=== PATIENT | female | born 1960 | race Caucasian/White ===

== ENCOUNTER 2017-08-23 21:22 | Emergency (ER) | payer BC ==
[~2017-08-23] VITALS: Ht 170.2 cm; Wt 81.6 kg
[2017-08-23 22:19] VITALS: BP_SYST 120
[2017-08-23 22:53] LABS: BASOPHILS # (AUTO) 0.1 K/uL (0.0-0.2); BASOPHILS % (AUTO) 0.8 % (0.0-2.0); HEMOGLOBIN 13.5 g/dL (12.0-16.0); LYMPHOCYTES # (AUTO) 1.6 K/uL (1.0-5.5); LYMPHOCYTES % (AUTO) 17.7 % (20.5-51.5); MEAN CORPUSCULAR HEMOGLOBIN 30 pg (27-31); MEAN CORPUSCULAR HGB CONC 34 % (32-36); MEAN CORPUSCULAR VOLUME 91 fL (79.0-98.0); MONOCYTES # (AUTO) 0.4 K/uL (0.0-1.0); NEUTROPHILS # (AUTO) 6.8 K/uL (1.8-7.7); NEUTROPHILS % (AUTO) 76.5 % (40.0-70.0); PLATELET COUNT (AUTO) 242 K/uL (130-430); RED BLOOD CELL COUNT(AUTO) 4.42 MIL/uL (4.2-6.2); RED CELL DISTRIBUTION WIDTH 12.1 % (9.0-15.0); WHITE BLOOD COUNT (AUTO) 8.9 K/uL (4.8-10.8)
[2017-08-23 23:03] LABS: CALCIUM 8.7 mg/dL (8.4-11.0); CREATININE 1.07 mg/dL (0.55-1.30); POTASSIUM 3.5 mmol/L (3.5-5.1)
[2017-08-23 23:08] LABS: ALBUMIN 3.7 g/dL (3.4-4.8); TOTAL BILIRUBIN 0.5 mg/dL (0.0-1.0)
--- NOTE | 2017-08-23 23:14 | NUR ---
Pt ambulatory to bed 6 for evaluation
--- NOTE | 2017-08-23 23:20 | NUR ---
Patient presents to ER with complaint of fever and chills x1 day. Patient states temp was 101.7 oral at home. Patient states hx of kidney stones. Patient states primary MD advised her to seek medical attention if fever or chills developed. Temperature on arrival 98.3 oral. No other symptoms or complaints.
[2017-08-23 23:25] LABS: BILIRUBIN,URINE NEGATIVE (NEGATIVE); BLOOD, URINE 1+ (NEGATIVE); CLARITY/URINE SL HAZY (CLEAR); COLOR,URINE YELLOW (YELLOW); GLUCOSE,URINE NEGATIVE (NEGATIVE); KETONES,URINE NEGATIVE (NEGATIVE); LEUKOCYTE ESTERASE ,URINE 1+ (NEGATIVE); NITRITE, URINE NEGATIVE (NEGATIVE); PROTEIN URINE NEGATIVE (NEGATIVE); UROBILINOGEN,URINE 0.2 (0.2-1.0)
--- NOTE | 2017-08-23 23:25 | NUR ---
ER MD Turner at bedside for medical evaluation.
[2017-08-23] MEDS ORDERED: NACL 0.9% 1,000 ML IV ONE (23:30)
[2017-08-23] MEDS ORDERED: KETOROLAC TROMETHAMINE 15 MG VIAL IVP ONE (23:30)
[2017-08-23 23:38] LABS: BACTERIA,URINE MODERATE /HPF (None Seen)
[2017-08-23 23:39] LABS: MUCUS,URINE 1+ /LPF (None Seen)
[2017-08-23] MEDS ORDERED: LEVOFLOXACIN 500 MG TABLET PO ONE (23:45)
--- NOTE | 2017-08-23 23:55 | NUR ---
# 20 gauge angiocath placed to RAC. Use of asceptic technique. Opsite placed over site. Blood return noted. Flushed with 10 cc of normal saline. No evidence of infiltration noted. Patient tolerated well.
--- NOTE | 2017-08-24 00:35 | NUR ---
No adverse reactions noted after medication administration. Will continue to monitor.
[2017-08-24 00:53] VITALS: BP_SYST 118
--- NOTE | 2017-08-24 00:53 | NUR ---
Patient given written and verbal discharge instructions and verbalizes understanding. ER MD discussed with patient the results and treatment provided. Patient in stable condition. ID arm band removed. IV catheter removed intact and dressing applied, no active bleeding. Rx of Macrobid given. Patient educated on pain management and to follow up with PMD. Pain Scale 0/10. Opportunity for questions provided and answered. Medication side effect fact sheet provided.
== END 2017-08-24 00:53 | disposition home or self-care (01) ==
LOC: SED 21:22
DX: N20.0 Calculus of kidney (principal); N39.0 Urinary tract infection, site not specified; Z88.0 Allergy status to penicillin
CPT/HCPCS: 36415; 74176; 80053; 81000; 85025; 87086; 96374; 99285; J1885; J7030